=== PATIENT | female | born 2000 | race Caucasian/White ===

== ENCOUNTER 2023-10-05 07:57 | Day surgery (SDC) | payer MEDICAID ==
[2023-10-04 09:27] VITALS: BMI 47.6
[2023-10-05] MEDS: LACTATED RINGERS 1,000 ML IV SCH (08:25)
[2023-10-05] MEDS ORDERED: LIDOCAINE 1% INJ 10MG/ML (20 ML MDV) ONE (08:50)
[2023-10-05] MEDS ORDERED: PROPOFOL 10 MG/ML 20 ML VIAL IV ONE (08:50)
[2023-10-05 09:06] VITALS: TEMP 97.8
--- NOTE | 2023-10-05 09:11 | P.PCN ---
Date of Procedure: 10/05/23 Procedure(s) Performed: Brief history: Patient is a pleasant 33-year-old white femalescheduled for an elective upper endoscopy as well as colonoscopy as a part of evaluation of Iitermittent episodes of epigastric pain associated with nausea vomiting and diarrhea for the last 4 years duration. He has these episodes once or twice usually lasting for approximately 24 hours and spontaneously resolved. Procedure performed: Esophagogastroduodenoscopy with biopsy Colonoscopy with biopsy Preoperative diagnosis: Intermittent episodes of nausea, vomiting and diarrhea of 4 years duration Anesthesia: MAC Procedure: After informed consent was obtained from the patient was brought into the endoscopy unit and IV sedation was administered by anesthesia under continuous monitoring. Initially upper endoscopy was done. The Olympus GF 160 video endoscope was inserted inserted into the mouth and esophagus intubated without any difficulty and was gradually advanced into the stomach and duodenum and carefully examined. The bulb and second part of the duodenum appeared normal. Biopsies were done from the duodenum to evaluate for celiac disease.The scope was then withdrawn into the stomach adequately insufflated with air and upon careful examination the antrum Had mild antral gastritis and biopsies were done from this area. Mucosa of the body, cardia and fundus appeared normal. The scope was then withdrawn into the esophagus. The GE junction was located at 40 cm to the incisors. It appeared regular with no erythema erosions or ulcerations.Biopsies were done from the distal esophagus. Rest of the esophagus appeared normal. Patient tolerated the procedure well. At this time the patient continued to remain sedation. Initial digital rectal examination was normal. Olympus CF 160 video colonoscope was then inserted into the rectum and gradually advanced to the cecum without any difficulty. Careful examination was performed as the scope was gradually being withdrawn. The prep was excellent. The cecum, ascending colon, transverse colon, descending colon, sigmoid colon and rectum appeared normal. Biopsies were done from ascending and descending colon to rule out metastatic/collagenous colitis. Retroflexion was performed in the rectum and no lesions were noted. Patient tolerated the procedure well. Impression: 1. Upper endoscopy revealed mild gastritis but no evidence of esophagitis or peptic ulcer disease 2. Colonoscopy was within normal limits with no evidence of colorectal neoplasia Recommendations: Findings of this examination were discussed with the patient as well as her family. She was advised to follow with the biopsy results.Follow up in office as needed.
[2023-10-05 09:49] VITALS: BP 101/82; PULSE 75; RESP 16
== END 2023-10-05 09:53 | disposition home or self-care (01) ==
LOC: ORWHC2ENDO 07:57
PROVIDERS: ATTEND Internal Medicine Gastroenterology
DX: K29.50 Unspecified chronic gastritis without bleeding (principal); K21.00 Gastro-esophageal reflux disease with esophagitis, without bleeding; J45.909 Unspecified asthma, uncomplicated; K76.0 Fatty (change of) liver, not elsewhere classified; F41.9 Anxiety disorder, unspecified; F32.A Depression, unspecified; F17.290 Nicotine dependence, other tobacco product, uncomplicated; Z79.899 Other long term (current) drug therapy; Z88.0 Allergy status to penicillin; Z88.8 Allergy status to other drugs, medicaments and biological substances; Z90.49 Acquired absence of other specified parts of digestive tract
CPT/HCPCS: 81025; 88305; 45380; 43239; J2001; J2704